=== PATIENT | male | born 1970 | race Caucasian/White ===

== ENCOUNTER 2017-01-21 09:47 | Emergency (ER) | payer MEDICAID ==
[~2017-01-21] VITALS: Ht 165.1 cm; Wt 91.4 kg
[~2017-01-21 09:47] MED LIST: FENO145T25; MTF1000T; PIOG30TA19; RIFA300C; SULF1TAB7
[2017-01-21 09:50] VITALS: Ht 165.1 cm; Wt 91.4 kg
--- NOTE | 2017-01-21 10:07 | ERD ---
ER Documentation Chief Complaint Chief Complaint facial numbness started yesterday but drooping starting at 6am HPI This is a 47-year-old diabetic male presented to the ER with right facial tingling that started last night. This morning when he was at work, his coworker noticed that his right face was slightly drooping. The patient had not noticed this. He had also not noticed any speech abnormalities and himself. it Is unclear when the facial droop started. The patient denies any associated headache, blurry vision, earache, hearing loss, focal weakness, focal numbness, difficulty walking, or any other associated symptoms. No recent head injury. ROS All systems reviewed and are negative except as per history of present illness. Medications Home Meds Active Scripts Acyclovir* (Zovirax*) 800 Mg Tablet, 400 MG PO 5 TIMES DAILY for 7 Days, TAB Prov:ARELIS TUTTLE MD 01/21/17 Metformin* (Glucophage*) 500 Mg Tab, 500 MG PO BID, #20 TAB Prov:ARELIS TUTTLE MD 01/21/17 Prednisone* (Prednisone*) 20 Mg Tab, 60 MG PO DAILY for 7 Days, TAB Prov:ARELIS TUTTLE MD 01/21/17 Reported Medications Fenofibrate Nanocrystallized* (Tricor*) 145 Mg Tablet 08/04/10 Metformin* (Glucophage*) 1,000 Mg Tablet 08/04/10 Pioglitazone Hcl* (Actos*) 30 Mg Tablet 08/04/10 Sulfamethoxazole-Trimethoprim* (Bactrim* DS) 1 Tab Tab 08/04/10 Rifampin* (Rifadin*) 300 Mg Capsule 08/04/10 Allergies Allergies: Coded Allergies: No Known Allergies (Verified Allergy, Mild, 08/04/10) PMhx/Soc Medical and Surgical Hx: pt denies Surgical Hx History of Surgery: No Anesthesia Reaction: No Hx Neurological Disorder: No Hx Respiratory Disorders: No Hx Cardiac Disorders: No Hx Psychiatric Problems: No Hx Miscellaneous Medical Probl: Yes (Diabetes type 2) Hx Alcohol Use: No Hx Substance Use: No Hx Tobacco Use: No FmHx Family History: No coronary disease Physical Exam Vitals Vital Signs Date Time Temp Pulse Resp B/P Pulse Ox O2 Delivery O2 Flow Rate FiO2 01/21/17 10:42 94 20 151/96 100 Room Air 01/21/17 09:50 98.8 117 18 179/89 98 Physical Exam Const: Well-appearing, no apparent distress, nontoxic Head: Atraumatic Eyes: Normal Conjunctiva, normal eyelids, PERRLA, EOMI, no nystagmus ENT: Dry mucous membranes, posterior oropharynx normal. External ears and nose normal. Bilateral TMs normal with no vesicles. Neck: Full range of motion..~ No meningismus. Resp: Clear to auscultation bilaterally Cardio: Regular rate and rhythm, no murmurs Abd: Soft, non tender, non distended. Normal bowel sounds Skin: No petechiae or rashes Back: No midline or flank tenderness Ext: No cyanosis, or edema Neur: Awake and alert, oriented 3, right facial slight drooping noted. Unable to completely raise eyebrows on the right side of face compared to left. Poor eye closing on the right. Facial droop on right. All other cranial nerves appear to be intact. Strength and sensations are intact in all 4 extremities. Gait normal. Cerebellar exam normal. Psych: Normal Mood and Affect Results 24 hrs Laboratory Tests Test 01/21/17 10:34 Bedside Glucose 151mg/dL [facility] Accu-Chek done and interpreted by me. No significant hyperglycemia. [facility] Patient is presenting with right facial droop and paresthesias. Time of onset is unclear at this time. His vitals are stable. I have a low suspicion for carotid artery dissection, acute stroke, acute intracranial hemorrhage, giant cell arteritis, meningitis, or encephalitis. 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 I do not think any further imaging or labs is necessary at this time. Patient will be treated with prednisone and acyclovir. I gave him a prescription for metformin as he is not regularly following up with a primary care physician as he does not have one. 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 Return precautions were discussed. Patient was discharged in stable condition. 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
[2017-01-21] MEDS ORDERED: PRED20TA PO (10:25)
[2017-01-21] MEDS ORDERED: METF500T4 PO (10:25)
[2017-01-21] MEDS ORDERED: ACYC800T57 PO (10:25)
[2017-01-21 10:42] VITALS: BP 151/96; PULSE 94; RESP 20
== END 2017-01-21 10:44 | disposition home or self-care (01) ==
LOC: E/R 09:47
DX: G51.8 Other disorders of facial nerve (principal); E11.9 Type 2 diabetes mellitus without complications; Z79.84 Long term (current) use of oral hypoglycemic drugs
CPT/HCPCS: 82962; Z7502; 99284